=== PATIENT | female | born 1985 | race Caucasian/White ===

== ENCOUNTER 2017-08-12 11:50 | Inpatient (IN) | payer OTHER ==
[~2017-08-12] VITALS: Ht 157.5 cm; Wt 72.6 kg
[~2017-08-12 11:50] MED LIST: GAVISCON ES TA1 EACH PO; IRON325 MG PO; OBSTETRIX DHA1 EACH
== END 2017-08-19 20:04 | DRG 775 ==
LOC: OB/GYN 11:50 → LDR 11:50 → OB/GYN 08-16 14:25
PROC: BY4FZZZ Ultrasonography of Third Trimester, Single Fetus (ICD-10-PCS; 2017-08-12)
PROC: 4A1HXCZ Monitoring of Products of Conception, Cardiac Rate, External Approach (ICD-10-PCS; 2017-08-12)
PROC: BU4CZZZ Ultrasonography of Uterus and Ovaries (ICD-10-PCS; 2017-08-12)
PROC: BY4FZZZ Ultrasonography of Third Trimester, Single Fetus (ICD-10-PCS; 2017-08-14)
PROC: B24DZZZ Ultrasonography of Pediatric Heart (ICD-10-PCS; 2017-08-16)
PROC: 0KQM0ZZ Repair Perineum Muscle, Open Approach (ICD-10-PCS; principal; 2017-08-17)
PROC: 10E0XZZ Delivery of Products of Conception, External Approach (ICD-10-PCS; 2017-08-17)
DX: O70.1 Second degree perineal laceration during delivery (principal); Z37.0 Single live birth; O60.14X0 Preterm labor third trimester with preterm delivery third trimester, not applicable or unspecified; O69.81X0 Labor and delivery complicated by cord around neck, without compression, not applicable or unspecified; Z3A.34 34 weeks gestation of pregnancy

== ENCOUNTER 2017-10-05 13:23 | Outpatient (CLI) | payer OTHER | END 2017-10-05 13:31 | disposition home or self-care (01) | LOC: SONOGRAMA 13:23 | DX: R30.0 Dysuria (principal); R10.11 Right upper quadrant pain ==

== ENCOUNTER 2018-01-10 12:35 | Outpatient (CLI) | payer OTHER | END 2018-01-10 12:44 | disposition home or self-care (01) | LOC: LAB 12:35 | DX: E04.1 Nontoxic single thyroid nodule (principal); N92.1 Excessive and frequent menstruation with irregular cycle; E78.2 Mixed hyperlipidemia ==

== ENCOUNTER 2018-03-21 14:55 | Outpatient (CLI) | payer OTHER | END 2018-03-21 17:00 | disposition home or self-care (01) | LOC: SONOGRAMA 14:55 | DX: N94.89 Other specified conditions associated with female genital organs and menstrual cycle (principal) ==

== ENCOUNTER 2018-04-08 09:46 | Outpatient (CLI) | payer OTHER | END 2018-04-08 10:12 | disposition home or self-care (01) | LOC: LAB 09:46 | DX: Z34.01 Encounter for supervision of normal first pregnancy, first trimester (principal); A92.8 Other specified mosquito-borne viral fevers; R82.79 Other abnormal findings on microbiological examination of urine ==

== ENCOUNTER 2018-05-05 12:59 | Outpatient (CLI) | payer OTHER | END 2018-05-05 13:08 | disposition home or self-care (01) | LOC: LAB 12:59 | DX: Z34.01 Encounter for supervision of normal first pregnancy, first trimester (principal) ==

== ENCOUNTER 2018-05-07 12:48 | Outpatient (CLI) | payer OTHER | END 2018-05-07 12:55 | disposition home or self-care (01) | LOC: LAB 12:48 | DX: Z34.01 Encounter for supervision of normal first pregnancy, first trimester (principal) ==

== ENCOUNTER 2018-06-23 17:09 | Outpatient (CLI) | payer OTHER ==
[2018-06-23] MEDS ORDERED: PRENATAL FORMU1 EAC1 PO (18:09)
== END 2018-06-24 11:24 | disposition home or self-care (01) ==
LOC: OBS/DEL 17:09
DX: O26.892 Other specified pregnancy related conditions, second trimester (principal); R10.2 Pelvic and perineal pain; Z34.82 Encounter for supervision of other normal pregnancy, second trimester

== ENCOUNTER 2018-06-26 11:07 | Outpatient (CLI) | payer OTHER ==
[~2018-06-26 11:07] MED LIST changes: +PRENATAL FORMU1 EAC1 PO
== END 2018-06-26 17:00 | disposition home or self-care (01) ==
LOC: SONOGRAMA 11:07 → MAMO-SONO 11:15 → SONOGRAMA 17:00
DX: M25.562 Pain in left knee (principal)

== ENCOUNTER 2018-09-27 20:22 | Outpatient (CLI) | payer OTHER ==
[2018-09-27] MEDS ORDERED: FERROUS SULFAT325 MG PO (22:50)
[2018-09-27] MEDS ORDERED: PROGESTERO50 MG/1 ML IM (22:52)
== END 2018-09-28 14:30 | disposition home or self-care (01) ==
LOC: OBS/DEL 20:22
DX: O26.893 Other specified pregnancy related conditions, third trimester (principal); R10.2 Pelvic and perineal pain; Z34.83 Encounter for supervision of other normal pregnancy, third trimester

== ENCOUNTER 2018-10-14 14:49 | Outpatient (CLI) | payer OTHER ==
[~2018-10-14 14:49] MED LIST changes: +FERROUS SULFAT325 MG PO; +PROGESTERO50 MG/1 ML IM
== END 2018-10-15 13:28 | disposition home or self-care (01) ==
LOC: OBS/DEL 14:49
DX: O26.893 Other specified pregnancy related conditions, third trimester (principal); N20.0 Calculus of kidney; Z34.83 Encounter for supervision of other normal pregnancy, third trimester

== ENCOUNTER 2018-10-25 14:51 | Inpatient (IN) | payer OTHER ==
[~2018-10-25] VITALS: Ht 157.5 cm; Wt 77.1 kg
[2018-11-10] MEDS ORDERED: IBUPROFEN800 MG PO (13:04)
[2018-11-10] MEDS ORDERED: Tylenol Extra Streng PO (13:04)
== END 2018-11-10 13:59 | disposition home or self-care (01) | DRG 807 ==
LOC: OB/GYN → LDR 11-08 06:46 → OB/GYN 11-08 06:46
PROVIDERS: ADMIT Obstetrics & Gynecology
PROC: 10E0XZZ Delivery of Products of Conception, External Approach (ICD-10-PCS; principal; 2018-11-08)
PROC: 0HQ9XZZ Repair Perineum Skin, External Approach (ICD-10-PCS; 2018-11-08)
PROC: 3E033VJ Introduction of Other Hormone into Peripheral Vein, Percutaneous Approach (ICD-10-PCS; 2018-11-08)
PROC: 10907ZC Drainage of Amniotic Fluid, Therapeutic from Products of Conception, Via Natural or Artificial Opening (ICD-10-PCS; 2018-11-08)
PROC: 4A1HXCZ Monitoring of Products of Conception, Cardiac Rate, External Approach (ICD-10-PCS; 2018-11-08)
DX: O70.0 First degree perineal laceration during delivery (principal); Z37.0 Single live birth; Z3A.37 37 weeks gestation of pregnancy

== ENCOUNTER → 2019-04-18 12:57 | Outpatient (CLI) | payer OTHER | END | disposition home or self-care (01) | LOC: LAB 09:48 | DX: M54.5 Low back pain (principal); M54.6 Pain in thoracic spine; R06.02 Shortness of breath; R22.2 Localized swelling, mass and lump, trunk; R42 Dizziness and giddiness; K80.80 Other cholelithiasis without obstruction ==

== ENCOUNTER → 2019-04-18 | Outpatient (CLI) | payer OTHER ==
[~2019-04-18] MED LIST changes: +IBUPROFEN800 MG PO; +Tylenol Extra Streng PO
== END | disposition home or self-care (01) ==
LOC: SONOGRAMA 04-17 08:15 → RAD 07:45 → SONOGRAMA 07:45 → MAMO-SONO 15:27
DX: R22.2 Localized swelling, mass and lump, trunk (principal); M54.5 Low back pain; M54.6 Pain in thoracic spine; K80.80 Other cholelithiasis without obstruction; R06.02 Shortness of breath; Z12.31 Encounter for screening mammogram for malignant neoplasm of breast; Z64.4 Discord with counselors; Z87.898 Personal history of other specified conditions

== ENCOUNTER 2019-11-21 09:39 | Outpatient (CLI) | payer OTHER | END 2019-11-21 09:43 | disposition home or self-care (01) | LOC: NUCLEAR 09:39 | PROVIDERS: ATTEND Internal Medicine Gastroenterology | DX: K82.8 Other specified diseases of gallbladder (principal) | CPT/HCPCS: J2805; A9537; 78227 ==

== ENCOUNTER 2020-06-06 12:40 | Outpatient (CLI) | payer OTHER | END 2020-06-06 13:00 | disposition home or self-care (01) | LOC: OFIC 805 12:40 | PROVIDERS: ATTEND Otolaryngology | DX: R42 Dizziness and giddiness (principal); R22.1 Localized swelling, mass and lump, neck ==

== ENCOUNTER 2020-06-26 12:26 | Outpatient (CLI) | payer OTHER | END 2020-06-26 13:02 | disposition home or self-care (01) | LOC: OFIC 805 12:26 | PROVIDERS: ATTEND Otolaryngology | DX: R42 Dizziness and giddiness (principal) ==

== ENCOUNTER 2020-12-17 11:56 | Outpatient (CLI) | payer OTHER | END 2020-12-17 12:07 | disposition home or self-care (01) | LOC: SONOGRAMA 11:56 | PROVIDERS: ATTEND Specialist | DX: R10.84 Generalized abdominal pain (principal); K80.10 Calculus of gallbladder with chronic cholecystitis without obstruction ==

== ENCOUNTER 2021-04-28 06:11 | Emergency (ER) | payer OTHER ==
[~2021-04-28] VITALS: Ht 157.5 cm; Wt 75.3 kg
[2021-04-28] MEDS ORDERED: NORVASC5 MG PO (06:35)
== END 2021-04-28 19:01 | disposition home or self-care (01) ==
LOC: ER 06:11
DX: R10.2 Pelvic and perineal pain (principal); D27.0 Benign neoplasm of right ovary; K80.50 Calculus of bile duct without cholangitis or cholecystitis without obstruction
CPT/HCPCS: 74177; Q9965

== ENCOUNTER 2024-08-18 16:02 | Emergency (ER) | payer OTHER ==
[~2024-08-18] VITALS: Ht 157.5 cm; Wt 73.0 kg
[~2024-08-18 16:02] MED LIST changes: +NORVASC5 MG PO
[2024-08-18] MEDS ORDERED: FAMOtidine 10 MG/ML (4ML VIAL) IV ONE (17:30)
[2024-08-18] MEDS ORDERED: KETOROLAC TROMETHAMINE 60 MG VIAL IM ONE ×2 (17:30→17:37)
[2024-08-18] MEDS ORDERED: 0.9 % SODIUM CHLORIDE 1,000 ML IV ONE (17:30)
[2024-08-18] MEDS ORDERED: FAMOTIDINE/PF 20 MG/2 ML VIAL ONE (17:38)
[2024-08-18] MEDS ORDERED: ONDANSETRON HCL 2 MG/ML VIAL ONE (17:38)
[2024-08-18] MEDS ORDERED: ONDANSETRON HCL 2 MG/ML VIAL IV ONE (17:45)
[2024-08-18 18:21] LABS: HEMATOCRIT 36.3 % (36.0-45.00); HEMOGLOBIN 11.9 g/dL (12.0-15.00); MEAN CORPUSCULAR HEMOGLOBIN 27.1 pg (27.00-32.0); MEAN CORPUSCULAR HGB CONC 32.6 g/dl (32.0-36.0); PLATELET COUNT 213 K/uL (150-450); RED BLOOD COUNT 4.38 M/uL (4.00-6.00); RED CELL DISTRIBUTION WIDTH 15.2 % (11.5-14.5)
[2024-08-18 18:47] LABS: INR 0.99; PARTIAL THROMBOPLASTIN TIME 20.8 SECONDS (22.0-34.0); PROTHROMBIN TIME 10.8 SECONDS (9.0-11.5)
[2024-08-18 19:42] LABS: ALKALINE PHOSPHATASE 64 U/L (50-136); ALT/SGPT 24 U/L (12-78); ANION GAP 12 (10.0-20.0); AST/SGOT 12 U/L (15-37); BILIRUBIN TOTAL 0.27 mg/dL (0.3-1.2); BLOOD UREA NITROGEN 14 mg/dL (7-18); BUN CREA RATIO 15 (7.0-25.0); CALCIUM 9.3 mg/dL (8.5-10.1); CARBON DIOXIDE 23 mEq/L (21-32); CHLORIDE 109 mmol/L (98-107); CREATININE SERUM 0.92 mg/dL (0.55-1.02); GFR 68.69; GLOBULINA 3.4 G/DL (2.4-3.5); GLUCOSE FASTING 102 mg/dL (65-100); OSMOLALITY SERUM 280 MOSM/KG (275-295); POTASSIUM 4.31 mEq/L (3.5-5.1); SODIUM 140 mmol/L (136-145); TOTAL PROTEIN 7.4 gm/dL (6.4-8.2)
[2024-08-18 19:46] LABS: HCG QUANTITATIVE < 1 mUI/mL (1-3)
[2024-08-18] MEDS ORDERED: KETO10TA2 PO (21:10)
[2024-08-18] MEDS ORDERED: TAMS0.4C PO (21:10)
[2024-08-18] MEDS ORDERED: PROTONIX40 MG PO (21:10)
[2024-08-18] MEDS ORDERED: CEFUROXIME500 MG PO (21:10)
[2024-08-18] MEDS ORDERED: ZOFRAN8 MG PO (21:10)
[2024-08-18 22:19] LABS: URINE APPEARANCE Clear; URINE BILIRRUBIN Negative (NEGATIVE); URINE BLOOD NHT; URINE COLOR Yellow; URINE GLUCOSE Negative (NEGATIVE); URINE LEUKOCYTE Negative; URINE NITRATE Negative; URINE PROTEIN Negative (NEGATIVE); URINE UROBILINOGEN 0.2 E.U./dl
[2024-08-18 22:23] LABS: URINE BACTERIA 578.9 uL (0.0-1933); URINE EPITHELIAL CELLS 20.5 uL (0.0-38.8); URINE RBC 64.3 uL (0.0-20.8); URINE WBC 9.3 uL (0.0-23.2)
[2024-08-18 22:36] LABS: URINE KETONE 80 (NEGATIVE)
[2024-08-18] MEDS ORDERED: ORPHENADRINE CITRATE 30 MG/ML AMPUL ONE (22:42)
[2024-08-18] MEDS ORDERED: TRIAMCINOLONE ACETONIDE 40 MG/ML VIAL ONE (22:42)
== END 2024-08-18 22:14 | disposition home or self-care (01) ==
LOC: ER 16:03
PROVIDERS: General Practice
DX: N20.1 Calculus of ureter (principal); R10.31 Right lower quadrant pain; Z88.2 Allergy status to sulfonamides; I10 Essential (primary) hypertension; Z20.822 Contact with and (suspected) exposure to COVID-19

== ENCOUNTER 2024-11-24 23:48 | Emergency (ER) | payer OTHER ==
[~2024-11-24] VITALS: Ht 160 cm; Wt 68.9 kg
[~2024-11-24 23:48] MED LIST changes: +CEFUROXIME500 MG PO; +KETO10TA2 PO; +PROTONIX40 MG PO; +TAMS0.4C PO; +ZOFRAN8 MG PO
[2024-11-24] MEDS ORDERED: LABETALOL HCL200 MG (23:54)
[2024-11-25] MEDS ORDERED: RINGERS SOLUTION,LACTATED 1,000 ML IV STA (00:53)
[2024-11-25 02:13] LABS: INR 0.95
[2024-11-25 02:29] LABS: BASO % 0.4 % (0.1-1.2); EOS # 0.25 (0.04-0.54); EOS % 3.6 % (0.7-7.0); LYMPH # 2.43 (1.18-3.74); LYMPH % 35.0 % (19.3-53.1); MEAN PLATELET VOLUME 11.90 fl (9.4-12.4); MONO # 0.48 (0.24-0.82); MONO % 6.9 % (4.7-12.5); NEUT # 3.74 (1.56-6.13); NEUT % 54.0 % (34.0-71.1); RED CELL DISTRIBUTION WIDTH 15.7 % (11.6-14.4)
[2024-11-25 02:32] LABS: ALT/SGPT 21.0 U/L (12-78); AST/SGOT 7.0 U/L (15-37); BILIRUBIN TOTAL 0.28 mg/dL (0.3-1.2); BUN CREA RATIO 14.0 (7.0-25.0); CREATININE SERUM 0.7 mg/dL (0.55-1.02); GFR 94.15; GLOBULINA 3.8 G/DL (2.4-3.5); GLUCOSE FASTING 91.0 mg/dL (65-100); OSMOLALITY SERUM 280.0 MOSM/KG (275-295)
[2024-11-25 02:33] LABS: HCG QUANTITATIVE 3074.0 mUI/mL (1-3)
== END 2024-11-25 03:48 | disposition home or self-care (01) ==
LOC: ER 23:48
DX: O20.8 Other hemorrhage in early pregnancy (principal); Z3A.01 Less than 8 weeks gestation of pregnancy; Z88.2 Allergy status to sulfonamides

== ENCOUNTER 2024-11-26 10:41 | Emergency (ER) | payer OTHER ==
[~2024-11-26] VITALS: Ht 157.5 cm; Wt 68.9 kg
[~2024-11-26 10:41] MED LIST changes: +LABETALOL HCL200 MG
[2024-11-26] MEDS ORDERED: 0.9 % SODIUM CHLORIDE 1,000 ML IV STA (11:07)
[2024-11-26 12:15] LABS: BASO % 0.2 % (0.1-1.2); EOS # 0.26 (0.04-0.54); EOS % 3.0 % (0.7-7.0); LYMPH # 1.69 (1.18-3.74); LYMPH % 19.7 % (19.3-53.1); MEAN PLATELET VOLUME 11.30 fl (9.4-12.4); MONO # 0.42 (0.24-0.82); MONO % 4.9 % (4.7-12.5); NEUT # 6.17 (1.56-6.13); NEUT % 72.0 % (34.0-71.1); RED CELL DISTRIBUTION WIDTH 15.6 % (11.6-14.4)
[2024-11-26 12:41] LABS: INR 0.98
[2024-11-26 13:01] LABS: BUN CREA RATIO 11.0 (7.0-25.0); CREATININE SERUM 0.7 mg/dL (0.55-1.02); GFR 94.15; GLUCOSE FASTING 87.0 mg/dL (65-100); OSMOLALITY SERUM 281.0 MOSM/KG (275-295)
[2024-11-26 13:02] LABS: HCG QUANTITATIVE 1833.0 mUI/mL (1-3)
[2024-11-26 13:54] LABS: URINE APPEARANCE Clear; URINE BILIRRUBIN Negative (NEGATIVE); URINE BLOOD Large; URINE COLOR Orange; URINE GLUCOSE Negative (NEGATIVE); URINE KETONE Negative (NEGATIVE); URINE LEUKOCYTE Small; URINE NITRATE Negative; URINE PROTEIN Trace (NEGATIVE); URINE UROBILINOGEN 0.2 E.U./dl
[2024-11-26 13:58] LABS: URINE BACTERIA 139.1 uL (0.0-1933); URINE EPITHELIAL CELLS 4.9 uL (0.0-38.8); URINE RBC 10198.8 uL (0.0-20.8); URINE WBC 32.6 uL (0.0-23.2)
[2024-11-26 14:01] LABS: URINE CAST 0.00 uL (0.0-1.40)
== END 2024-11-26 16:53 | disposition home or self-care (01) ==
LOC: ER 10:41
PROVIDERS: Emergency Medicine
DX: O20.9 Hemorrhage in early pregnancy, unspecified (principal); O10.911 Unspecified pre-existing hypertension complicating pregnancy, first trimester; Z3A.01 Less than 8 weeks gestation of pregnancy; Z88.2 Allergy status to sulfonamides

== ENCOUNTER 2025-02-28 09:00 | Day surgery (SDC) | payer OTHER ==
[2025-02-21 10:05] VITALS: BP 119/77
[2025-02-21 10:38] LABS: URINE APPEARANCE Clear; URINE BILIRRUBIN Negative (NEGATIVE); URINE BLOOD Negative; URINE COLOR Yellow; URINE GLUCOSE Negative (NEGATIVE); URINE KETONE Negative (NEGATIVE); URINE LEUKOCYTE Negative; URINE NITRATE Negative; URINE PROTEIN Negative (NEGATIVE); URINE UROBILINOGEN 0.2 E.U./dl
[2025-02-21 10:42] LABS: URINE BACTERIA 31.2 uL (0.0-1933); URINE EPITHELIAL CELLS 9.9 uL (0.0-38.8); URINE RBC 48.9 uL (0.0-20.8); URINE WBC 6.1 uL (0.0-23.2)
[2025-02-21 10:43] LABS: BASO % 0.2 % (0.1-1.2); EOS # 0.13 (0.04-0.54); EOS % 2.3 % (0.7-7.0); LYMPH # 2.01 (1.18-3.74); LYMPH % 36.2 % (19.3-53.1); MEAN PLATELET VOLUME 11.90 fl (9.4-12.4); MONO # 0.30 (0.24-0.82); MONO % 5.4 % (4.7-12.5); NEUT # 3.09 (1.56-6.13); NEUT % 55.7 % (34.0-71.1); RED CELL DISTRIBUTION WIDTH 14.3 % (11.6-14.4)
[2025-02-21 11:06] LABS: INR 0.98
[2025-02-21 11:22] LABS: URINE CAST 0.00 uL (0.0-1.40)
[2025-02-21 11:39] LABS: ALT/SGPT 24 U/L (12-78); AST/SGOT 10 U/L (15-37); BILIRUBIN TOTAL 0.45 mg/dL (0.3-1.2); BUN CREA RATIO 14 (7.0-25.0); CREATININE SERUM 0.66 mg/dL (0.55-1.02); GFR 100.23; GLOBULINA 3.4 G/DL (2.4-3.5); GLUCOSE FASTING 83 mg/dL (65-100); OSMOLALITY SERUM 281 MOSM/KG (275-295)
[2025-02-21 11:50] LABS: HCG QUANTITATIVE < 1 mUI/mL (1-3)
[~2025-02-28] VITALS: Ht 157.5 cm; Wt 65.8 kg
[2025-02-28] MEDS ORDERED: POVIDONE-IODINE 118 ML BOTT TOP ONE (11:45)
[2025-02-28] MEDS ORDERED: RINGERS SOLUTION,LACTATED 1,000 ML IV SCH (13:30)
[2025-02-28] MEDS ORDERED: CEFAZOLIN SODIUM 1,000 MG VIAL IV ONE (13:30)
== END 2025-02-28 16:40 | disposition home or self-care (01) ==
LOC: CIR.AMB 09:00
PROVIDERS: ATTEND Student in an Organized Health Care Education/Training Program
DX: D27.0 Benign neoplasm of right ovary (principal); R10.20 Pelvic and perineal pain unspecified side